=== PATIENT | female | born 1975 | race Caucasian/White ===

== ENCOUNTER 2020-09-19 11:31 | Outpatient (REF) | payer OTHER, SELFPAY ==
--- NOTE | ~2020-09-19 | XR_ITS ---
EXAMINATION: ABDOMEN AND LUMBAR SPINE. CLINICAL INFORMATION: Abdominal distention. COMPARISON: None TECHNIQUE: Abdomen 2 views. Lumbar spine 3 views. FINDINGS: ABDOMEN: There is scattered gas and stool seen in the colon without any significant distention. There is no fluid levels or free air. There is no organomegaly. No radiopaque renal calculi seen. No gross bony abnormality. LUMBAR SPINE: There is maintained lumbar lordosis. The vertebral heights and alignment is normal. There is loss of L5-S1 disc height. Rest of the disc heights are normal. No fracture, lytic or sclerotic process seen. The paravertebral soft tissues are normal. The SI joints are symmetrical and normal. XR/XR lumbar spine 2-3V IMPRESSION: Unremarkable KUB with mild constipation. Mild degenerative disc changes L5-S1 disc level. No visible acute fracture or dislocation seen.
--- NOTE | ~2020-09-19 | XR_ITS ---
EXAMINATION: ABDOMEN AND LUMBAR SPINE. CLINICAL INFORMATION: Abdominal distention. COMPARISON: None TECHNIQUE: Abdomen 2 views. Lumbar spine 3 views. FINDINGS: ABDOMEN: There is scattered gas and stool seen in the colon without any significant distention. There is no fluid levels or free air. There is no organomegaly. No radiopaque renal calculi seen. No gross bony abnormality. LUMBAR SPINE: There is maintained lumbar lordosis. The vertebral heights and alignment is normal. There is loss of L5-S1 disc height. Rest of the disc heights are normal. No fracture, lytic or sclerotic process seen. The paravertebral soft tissues are normal. The SI joints are symmetrical and normal. XR/XR abdomen min 2V IMPRESSION: Unremarkable KUB with mild constipation. Mild degenerative disc changes L5-S1 disc level. No visible acute fracture or dislocation seen.
[2020-09-19 13:57] LABS: MANUAL DIFF FLAG NO
[2020-09-19 14:07] LABS: Basophils Absolute Auto 0.1 X10*3/uL (0.0-0.2); Eosinophils Absolute Auto 0.4 X10*3/uL (0.0-0.4); Eosinophils Percent Auto 4.4 % (0-4); Hematocrit 39.7 % (37-47); Hemoglobin 12.8 g/dl (12.0-16.0); Imm Gran Abs Auto 0.08 X10*3/uL (0.00-0.03); Imm Gran Pct Auto 0.8 % (0.0-0.4); Lymphocytes Percent Auto 20.1 % (20-40); Mean Corpuscular HGB Conc 32.2 g/dl (31.0-35.0); Mean Corpuscular Hemoglobin 27.6 pg (27.0-33.0); Mean Corpuscular Volume 85.7 fL (80-98); Monocytes Absolute Auto 0.5 X10*3/uL (0.1-1.2); Monocytes Percent Auto 4.8 % (2-11); Neutrophils Absolute Auto 6.8 X10*3/uL (2.0-8.3); Neutrophils Percent Auto 68.9 % (45-73); Platelet Count 228 X10*3/uL (160-400); Red Blood Count 4.63 X10*6/uL (4.20-5.50); White Blood Count 9.9 X10*3/uL (4.8-10.8)
[2020-09-19 14:27] LABS: Alanine Aminotransferase 68 U/L (0-31); Albumin Level 4.5 g/dL (3.5-5.0); Alkaline Phosphatase 129 U/L (39-117); Anion Gap 16 (12-20); Aspartate Amino Transferase 36 U/L (5-31); Bilirubin Total 0.4 mg/dL (0.0-1.0); Blood Urea Nitrogen 22 mg/dL (9-16); Calcium 9.6 mg/dL (8.4-10.2); Carbon Dioxide 26 mmol/L (22-29); Chloride 96 mmol/L (96-108); Cholesterol 387 mg/dL; Estimated Glomerular Filt Rate 59; Glucose Fasting 363 mg/dL (60-99); HDL Cholesterol 35 mg/dL; Potassium 4.6 mmol/L (3.3-5.1); Sodium 133 mmol/L (135-145); Total Protein 7.8 g/dL (6.5-8.0); Triglycerides 1222 mg/dL
[2020-09-19 14:46] LABS: TSH reflex Free T4 2.73 uIU/mL (0.32-4.0)
== END 2020-09-19 11:32 | disposition home or self-care (01) ==
LOC: HO.HMGCX 11:31
PROVIDERS: PCP Nurse Practitioner Family; Visit Provider Nurse Practitioner Family
DX: R07.9 Chest pain, unspecified (principal); R14.0 Abdominal distension (gaseous); M54.5 Low back pain; R74.8 Abnormal levels of other serum enzymes; E11.9 Type 2 diabetes mellitus without complications
CPT/HCPCS: 36415; 72100; 74019; 80053; 80061; 84443; 85025

== ENCOUNTER 2020-10-10 10:09 | Outpatient (REF) | payer OTHER, SELFPAY ==
[2020-10-10 11:55] LABS: Cholesterol 190 mg/dL; HDL Cholesterol 33 mg/dL; Triglycerides 646 mg/dL
[2020-10-10 12:13] LABS: HBS Num1 14.99 mIU/mL (0-7.99); HBc Num1 0.13 S/CO (0.00-0.79); Hepatitis A Antibody IgM 0.15 Index (0-0.79); Hepatitis B Core Antibody Nonreactive (Nonreactive); ~HepC Num1 0.07 S/CO (0.00-0.79); ~Hepatitis A Antibody IgM Nonreactive (Nonreactive); ~Hepatitis B Surface Antibody REACTIVE (Nonreactive); ~Hepatitis C Antibody Nonreactive (Nonreactive)
[2020-10-10 12:27] LABS: HBsAGNum1 0.28 S/CO (0.00-0.99); Hepatitis B Surface Antigen Negative (Negative)
== END 2020-10-10 10:10 | disposition home or self-care (01) ==
LOC: HO.HMGCLDS 10:09
PROVIDERS: PCP Nurse Practitioner Family; Visit Provider Nurse Practitioner Family
DX: R74.8 Abnormal levels of other serum enzymes (principal); E78.5 Hyperlipidemia, unspecified
CPT/HCPCS: 36415; 80061; 86704; 86706; 86709; 86803; 87340

== ENCOUNTER 2020-11-21 08:45 | Outpatient (REF) | payer OTHER, SELFPAY ==
--- NOTE | ~2020-11-21 | US_ITS ---
EXAMINATION: US ABDOMEN COMPLETE CLINICAL INFORMATION: Abnormal levels of other serum enzymes. COMPARISON: KUB 09/19/2020. CT abdomen and pelvis 02/18/2018. TECHNIQUE: Real-time imaging of the abdominal viscera. FINDINGS: PANCREAS: Not well visualized due to bowel gas. ABDOMINAL AORTA: Not well visualized due to bowel gas INFERIOR VENA CAVA: Not well visualized due to bowel gas LIVER: The liver is enlarged. Liver echotexture is increased probably representing fatty infiltration.. No focal hepatic lesion. There is no intrahepatic biliary duct dilatation seen. GALLBLADDER: The gallbladder is contracted. No gallstones are seen. COMMON BILE DUCT: Normal in caliber measuring 0.42 cm in diameter. RIGHT KIDNEY: Normal. No hydronephrosis. No renal calculi or focal parenchymal lesions. The kidney measures 12.4 cm in maximum dimension. LEFT KIDNEY: There is a 1.2 x 1 x 0.9 cm cyst in the upper pole. No hydronephrosis or renal calculi. The kidney measures 11.1 cm in maximum dimension. SPLEEN: Upper normal in size. The spleen measures 12.9 cm in maximum dimension. FREE FLUID: None. US/US abdomen complete IMPRESSION: Enlarged echogenic liver suggestive of fatty infiltration. Contracted gallbladder. Small left renal cyst. Nonvisualization of the pancreas, aorta and IVC.
== END 2020-11-21 08:46 | disposition home or self-care (01) ==
LOC: HO.US 08:45
PROVIDERS: Visit Provider Nurse Practitioner Family
DX: R07.9 Chest pain, unspecified (principal); R74.8 Abnormal levels of other serum enzymes
CPT/HCPCS: 76700